=== PATIENT | female | born 1960 | race Caucasian/White ===

== ENCOUNTER 2017-02-14 08:24 | Day surgery (SDC) | payer OTHER ==
--- NOTE | 2017-02-13 14:15 | PREOPHP ---
DATE OF ADMISSION: 01/05/2017 HISTORY: This is a 56-year-old female patient seen in the office October 2016 with a long history of nasal obstruction to breathing, having been treated unsuccessfully with allergy medications. She hutton d surgery at approximately age 13 years, noted now to have obstructive septal deviation with turbina te hypertrophy, admitted to the hospital for corrective nasal surgery. PAST MEDICAL HISTORY: ALLERGIES: NONE. MEDICAL CONDITIONS: High blood pressure, diabetes. MEDICATIONS: 1. Benazepril. 2. Metformin. PAST SURGICAL HISTORY: Hysterectomy. CLOTTING DISORDERS: None. HABITS: Alcohol: Social. Tobacco: Recreational. Drugs: None. PHYSICAL EXAMINATION GENERAL: Well-developed, well-nourished female patient in no acute distress. HEAD: Normocephalic. No masses or deformities. EARS: Ears and tympanic membranes are normal. NOSE: Obstructive septal deviation with turbinate hypertrophy. Oropharynx is clear. NECK: No masses or adenopathy. CHEST: Clear to P and A. HEART: Regular sinus rhythm without murmur. ABDOMEN: Soft, bowel sounds normal. No masses or megaly. EXTREMITIES: Full range of motion without deformity. NEUROLOGIC: Physiologic. PELVIC AND RECTAL: Not done. IMPRESSION: Septal deviation with turbinate hypertrophy. RECOMMENDATIONS: Admit for surgery. Dictated By: JO GEORGE/HENNA Conf#: [id number] DID#: [id number]
[2017-02-14] VITALS (10 sets, daily range): BP systolic 119–156; BP diastolic 70–85; PULSE 63–83; RESP 16–23; Ht 154.9 cm; Wt 78.2 kg
[~2017-02-14] VITALS: Ht 154.9 cm; Wt 78.2 kg
[~2017-02-14 08:24] MED LIST: AMLODIPINE
[2017-02-14] MEDS ORDERED: LORA10TA3 PO (09:12)
[2017-02-14] MEDS ORDERED: CHOL20003 PO (09:12)
[2017-02-14] MEDS ORDERED: BENA20TA48 PO (09:13)
[2017-02-14] MEDS ORDERED: METF500T4 PO (09:13)
[2017-02-14] MEDS ORDERED: FOLI-49 PO (09:14)
[2017-02-14] MEDS ORDERED: MET25 PO (09:18)
[2017-02-14] MEDS ORDERED: LIDOCAINE 2%/EPI 30 ML INJ ONE (12:41)
[2017-02-14] MEDS ORDERED: COCAINE 4% 4 ML TOP ONE (12:41)
[2017-02-14] MEDS ORDERED: FENTAnyl 50 MCG/ML VIAL ONE (13:04)
[2017-02-14] MEDS ORDERED: MIDAZOLAM 1 MG/ML 2 ML INJ ONE (13:04)
[2017-02-14] MEDS ORDERED: PROPOFOL 20 ML ONE (13:04)
[2017-02-14] MEDS ORDERED: SUCCINYLCHOLINE CHLORIDE 100 MG/5 ML SYG IV ONE (13:04)
[2017-02-14] MEDS ORDERED: LIDOCAINE 2% (SDV) 5 ML INJ ONE (13:04)
[2017-02-14] MEDS ORDERED: METOCLOPRAMIDE 10 MG INJ ONE (13:21)
[2017-02-14] MEDS ORDERED: ONDANSETRON 4 MG INJ ONE (13:21)
[2017-02-14] MEDS ORDERED: FAMOTIDINE 20 MG INJ ONE (13:21)
[2017-02-14] MEDS ORDERED: FENTAnyl 50 MCG/ML VIAL IV PRN (13:30)
[2017-02-14] MEDS ORDERED: ONDANSETRON 4 MG INJ IV PRN (13:30)
[2017-02-14] MEDS ORDERED: DIPHENHYDRAMINE 50 MG INJ IV PRN (13:30)
[2017-02-14] MEDS ORDERED: MEPERIDINE 25 MG INJ IV PRN (13:30)
[2017-02-14] MEDS ORDERED: PROCHLORPERAZINE 10 MG INJ IV PRN (13:30)
[2017-02-14] MEDS ORDERED: HYDROmorphONE (0.2 MG/ML) 10ML SYG IV PRN (13:30)
[2017-02-14] MEDS ORDERED: OXYCODONE/ACETAMINOPHEN (5/325) TAB PO PRN (13:30)
[2017-02-14] MEDS ORDERED: HYDROCODONE/APAP (7.5/325) TAB PO PRN (15:00)
--- NOTE | 2017-02-14 17:34 | OPR ---
DATE OF OPERATION: 02/14/2017 PREOPERATIVE DIAGNOSIS: Septal deviation with turbinate hypertrophy. POSTOPERATIVE DIAGNOSIS: Septal deviation with turbinate hypertrophy. PROCEDURE PERFORMED: Septoplasty with turbinate reduction. SURGEON: John Crisostomo MD OPERATION: The patient brought to the operating room under parenteral sedation, general oroendotrac heal anesthesia with the patient in the supine position, sterile sheets and drapes applied. Nose lo calized with Xylocaine 1% and epinephrine 1:100,000 injectable and with 5% cottonoid cocaine. Ther e had been prior nasal septal surgery, the septum was totally obstructed and deviated on the right. The inferior turbinate bones were hypertrophic. The inferior turbinate bones were lightly crushed and outfractured. A left septal hemitransfixion incision was made. Septal mucoperichondrial and mucoperiosteal flaps were elevated sharply due to prior surgical scar formation. Septal cartilage was from the crest of the premaxilla and from the bony cartilaginous junction and portions removed, and the clay ining cartilage vertically [id number] cut to correct cartilaginous deviation. The bony sep everette was visualized through subperiosteal tunnels and using a mallet and chisel, small portions of th e septum were mobilized and removed with forceps to correct posterior nasal airway obstruction. The nose was suctioned. The incision was closed with interrupted 4-0 chromic. The nose was packed with 1/2-inch Adaptic, ba citracin gauze. Drip pad applied. The patient awakened and extubated in the operating room, return ed to recovery in excellent condition. ESTIMATED BLOOD LOSS: Nil. COMPLICATIONS: None. Dictated By: JOHN CRISOSTOMO MD SC/NTS Conf#: [id number] DID#: [id number]
== END 2017-02-14 15:23 | disposition home or self-care (01) ==
LOC: SDS 08:24
PROVIDERS: ATTEND Otolaryngology Otolaryngology/Facial Plastic Surgery
DX: J34.2 Deviated nasal septum (principal); J34.3 Hypertrophy of nasal turbinates; I10 Essential (primary) hypertension; E11.9 Type 2 diabetes mellitus without complications; Z87.891 Personal history of nicotine dependence
CPT/HCPCS: 30140; 30520; 82962; 88300; J2250; J2405; J2765; J3010; J7999; Z7512; Z7610